=== PATIENT | female | born 2000 | race American Indian/Alaskan Native ===

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

== ENCOUNTER 2021-03-17 21:01 | Emergency (ER) | payer BC, OTHER ==
[2021-03-17 21:31] VITALS: BP 115/59
--- NOTE | 2021-03-17 22:57 | Emergency Department Report ---
ED General Adult HPI - General Chief complaint: Abdominal Pain Stated complaint: abdominal pain Time Seen by Provider: 03/17/21 22:15 Source: patient Mode of arrival: Ambulatory Limitations: No Limitations - History of Present Illness Initial comments: 20-year-old female patient presents to the emergency department with complaints of lower abdominal pain starting 2 days ago. No known sick contacts. No recent travel. No current steroid or antibiotic use. Patient has not taken any medication for the pain. Last menstrual cycle was 1 week ago. No history of prior abdominal surgeries. Denies fever, chills, nausea, vomiting, diarrhea, constipation, vaginal discharge, vaginal bleeding, urinary symptoms. Denies all other complaints at this time. Severity scale (0 -10): 2 - Related Data Previous Rx's Medication Instructions Recorded Last Taken Type Ibuprofen [Motrin 600 MG tab] 600 mg PO Q8H PRN #14 tablet 11/21/20 Unknown Rx Sulfamethoxazole/Trimethoprim 1 each PO BID 3 Days tablet 03/18/21 Unknown Rx [Bactrim DS TAB] Allergies Allergy/AdvReac Type Severity Reaction Status Date / Time No Known Allergies Allergy Unverified 11/21/20 22:52 ED Review of Systems ROS: Stated complaint: BODYACHES/CONSTIPATION/RT SIDE PAIN Other details as noted in HPI Other: GENERAL: Negative for fever, chills, weight change, anorexia, fatigue. ENT: Negative for ear pain, difficulty hearing, sore throat, nasal congestion, epistaxis. CARDIOVASCULAR: Negative for chest pain, palpitations, lower extremity swelling. PULMONARY: Negative for cough, dyspnea, wheezing, orthopnea, cyanosis. GASTROINTESTINAL: Positive for abdominal pain. MUSCULOSKELETAL: Negative for joint pain, joint swelling, myalgias, back pain, neck pain. NEUROLOGICAL: Negative for headache, seizure, syncope, paresthesias, weakness. INTEGUMENTARY: Negative for erythema, rash, diaphoresis, laceration, ecchymosis. HEMATOLOGICAL: Negative for hemoptysis, hematemesis, hematochezia, hematuria. PSYCHIATRIC: Negative for hallucinations, suicidal ideation, homicidal ideation, anxiety, depression. ED Past Medical Hx - Past Medical History Previous Medical History?: No - Surgical History Past Surgical History?: No - Social History Smoking Status: Never Smoker Substance Use Type: None - Medications Home Medications: Home Medications Medication Instructions Recorded Confirmed Last Taken Type Ibuprofen [Motrin 600 MG tab] 600 mg PO Q8H PRN #14 tablet 11/21/20 Unknown Rx Sulfamethoxazole/Trimethoprim 1 each PO BID 3 Days tablet 03/18/21 Unknown Rx [Bactrim DS TAB] ED Physical Exam - General Limitations: No Limitations - Other Other exam information: General: Awake and alert. No acute distress. Head: Atraumatic, normocephalic. Eyes: EOMI. Pupils are equal and round. Normal sclera and conjunctiva. ENT: Oral mucosa is moist. Normal pharyngeal exam. Neck: Supple. No lymphadenopathy. Pulmonary: No respiratory distress. Clear to auscultation bilaterally. Cardiac: Regular rate and rhythm. Pulses are palpable and equal bilaterally. No lower extremity cyanosis or edema. Skin: Warm and dry. No rashes. Abdomen: Soft, non-protuberant. Patient reports diffuse lower abdominal pain without localized tenderness, guarding, rigidity, or rebound. Bowel sounds are normal. No organomegaly or masses noted. Back: Normal alignment. No CVA tenderness. Extremities: Symmetrical. Full range of motion intact. Neurological: Alert and oriented, appropriately interactive, no focal deficits. Psych: Cooperative. Appropriate mood and affect. Speech is evenly metered. Thoughts are logically construed. ED Course Vital Signs 03/17/21 21:29 Temperature 98.7 F Pulse Rate 68 Respiratory 16 Rate Blood Pressure 115/59 [Left] O2 Sat by Pulse 98 Oximetry ED Medical Decision Making - Lab Data Result diagrams: 03/17/21 23:16 03/17/21 23:16 - Medical Decision Making Differential diagnosis including but not limited to: appendicitis, pyelonephritis, ovarian cyst/torsion, pelvic inflammatory disease, urinary tract infection, On reevaluation, patient remains stable. Repeat abdominal exam is benign. Labs are unremarkable. test is negative. Patient is afebrile, hemodynamically stable, tolerating oral intake without difficulty, no vaginal bleeding or discharge. Urinalysis is nitrite positive with trace leukocyte esterase. Patient will be treated for cystitis with short course of Bactrim. No clinical indication for further diagnostic work-up on an emergent basis at this time. Patient will be discharged home with antibiotics and instructed to follow-up with primary care provider within 24 hours for repeat abdominal assessment. Patient expressed understanding and is agreeable to plan of care. Strict return precautions provided. Specifically, signs/symptoms of appendicitis were discussed with the patient, who agrees to return to the emergency department immediately for reevaluation if these occur. Repeat exam is unremarkable and benign. History, exam, diagnostic testing, and current condition do not suggest worrisome pathology to warrant further testing, continued ED treatment, admission, or surgical evaluation at this point. Given the low probability of a significant medical illness, it would be more likely to result in harm than benefit to perform further testing at this stage. Discussed findings, presumptive diagnosis, need for follow-up and specific signs/symptoms that should prompt immediate return to the emergency department. Instructions were explained in detail to the patient in addition to giving written discharge information. Patient expressed understanding and was given the opportunity to ask questions, all of which were satisfactorily answered prior to discharge home. Critical care attestation.: If time is entered above; I have spent that time in minutes in the direct care of this critically ill patient, excluding procedure time. ED Disposition Clinical Impression: Urinary tract infection Qualifiers: Urinary tract infection type: acute cystitis Hematuria presence: without hematuria Qualified Code(s): N30.00 - Acute cystitis without hematuria Disposition: TO HOME OR SELFCARE Is pt being admited?: No Does the pt Need Aspirin: No Condition: Stable Instructions: Urinary Tract Infection, Adult, Abdominal Pain (ED) Additional Instructions: Take Tylenol every 4 hours and Motrin every 8 hours as needed for pain. Take Bactrim with food as directed. Increase your dietary intake of probiotic rich foods while taking this me dication. Follow-up with your primary care provider this week. Call tomorrow to schedule an appointment. Return to the emergency department immediately for new or worsening symptoms. Specifically, return to the emergency department immediately for fever, vomiting, loss of appetite, pain localized specifically to the right lower part of your abdomen, abnormal vaginal bleeding/discharge, or any other concerns. Prescriptions: Sulfamethoxazole/Trimethoprim [Bactrim DS TAB] 1 each PO BID 3 Days tablet Referrals: [facility] [Provider Group] - 3-5 Days Time of Disposition: 00:40
[2021-03-17 23:30] LABS: Bacteria,Urine 1+ /HPF (Negative); Bilirubin,Urine NEG (Negative); Blood,Urine NEG (Negative); Color,Urine Yellow (Yellow); Mucus,Urine FEW /HPF; Protein,Urine <15 mg/dL mg/dL (Negative); Urobilinogen,Urine < 2.0 mg/dL (<2.0)
[2021-03-18] LABS: Basophils # (Auto) 0.1 K/mm3 (0.0-0.1); Basophils % (Auto) 1.3 % (0.0-1.8); Eosinophils # (Auto) 0.3 K/mm3 (0.0-0.4); Eosinophils % (Auto) 4.3 % (0.0-4.3); Hematocrit 41.2 % (30.3-42.9); Hemoglobin 13.8 gm/dl (10.1-14.3); Lymphocytes # (Auto) 2.3 K/mm3 (1.2-5.4); Lymphocytes % (Auto) 30.1 % (13.4-35.0); Mean Corpuscular HGB Conc 34 % (30-34); Mean Corpuscular Volume 88 fl (79-97); Monocytes # (Auto) 0.9 K/mm3 (0.0-0.8); Monocytes % (Auto) 11.2 % (0.0-7.3); Platelet Count 299 K/mm3 (140-440); Red Cell Distribution Width 14.9 % (13.2-15.2)
[2021-03-18 00:25] LABS: Alanine Aminotransferase 8 units/L (7-56); Albumin 3.8 g/dL (3.9-5); BUN/Creatinine Ratio 11; Blood Urea Nitrogen 8 mg/dL (7-17); Calcium 8.9 mg/dL (8.4-10.2); Hemolysis Index 5
== END 2021-03-18 02:00 | disposition home or self-care (01) ==
LOC: ED 21:01
DX: N39.0 Urinary tract infection, site not specified (principal)
CPT/HCPCS: 36415; 80053; 81001; 83690; 83735; 84703; 85025; 99283

== ENCOUNTER 2021-05-07 08:19 | Emergency (ER) | payer BC ==
[2021-05-07 08:22] VITALS: BP 142/71
--- NOTE | 2021-05-07 09:42 | Emergency Department Report ---
- General Chief Complaint: Pain General Stated Complaint: GENERAL ILLNESS Time Seen by Provider: 05/07/21 08:55 Source: patient Mode of arrival: Ambulatory Limitations: No Limitations - History of Present Illness Initial Comments: 20-year-old -[place] female presents to the emergency room complaining of headache, body aches, chills cough and sneezing. She states that she has a rash that comes and goes. 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 Denies any fever. MD Complaint: fever Onset/Timin -: days(s) Worsens With: nothing Context: sick contacts Associated Symptoms: chills, myalgias, headache, rhinorrhea, nasal congestion, cough. denies: chest pain, shortness of breath, abdominal pain, nausea, vomiting Treatments Prior to Arrival: none - Related Data Previous Rx's Medication Instructions Recorded Last Taken Type Ibuprofen [Motrin 600 MG tab] 600 mg PO Q8H PRN #14 tablet 11/21/20 Unknown Rx Sulfamethoxazole/Trimethoprim 1 each PO BID 3 Days tablet 03/18/21 Unknown Rx [Bactrim DS TAB] Allergies Allergy/AdvReac Type Severity Reaction Status Date / Time No Known Allergies Allergy Unverified 11/21/20 22:52 ED Review of Systems ROS: Stated complaint: GENERAL ILLNESS Other details as noted in HPI Comment: All other systems reviewed and negative ED Past Medical Hx - Social History Smoking Status: Never Smoker Substance Use Type: None - Medications Home Medications: Home Medications Medication Instructions Recorded Confirmed Last Taken Type Ibuprofen [Motrin 600 MG tab] 600 mg PO Q8H PRN #14 tablet 11/21/20 Unknown Rx Sulfamethoxazole/Trimethoprim 1 each PO BID 3 Days tablet 03/18/21 Unknown Rx [Bactrim DS TAB] ED Physical Exam - General Limitations: No Limitations General appearance: alert, in no apparent distress - Head Head exam: Present: atraumatic, normocephalic - Eye Eye exam: Present: normal appearance - ENT ENT exam: Present: mucous membranes moist, TM's normal bilaterally - Neck Neck exam: Present: normal inspection, full ROM. Absent: tenderness - Respiratory Respiratory exam: Present: normal lung sounds bilaterally. Absent: respiratory distress, chest wall tenderness, accessory muscle use - Cardiovascular Cardiovascular Exam: Present: regular rate, normal rhythm. Absent: systolic murmur, diastolic murmur, rubs, gallop - GI/Abdominal GI/Abdominal exam: Present: soft, normal bowel sounds - Extremities Exam Extremities exam: Present: normal inspection - Back Exam Back exam: Present: normal inspection - Neurological Exam Neurological exam: Present: alert, oriented X3 - Psychiatric Psychiatric exam: Present: normal affect, normal mood - Skin Skin exam: Present: warm, dry, intact, normal color. Absent: rash ED Course Vital Signs 05/07/21 05/07/21 08:21 08:59 Temperature 99.4 F Pulse Rate 80 Respiratory 16 Rate Blood Pressure 142/71 [Right] O2 Sat by Pulse 98 Oximetry ED Medical Decision Making - Medical Decision Making 20-year-old -[place] female presents to the emergency room complaining of headache, body aches, chills cough and sneezing. She states that she has a rash that comes and goes. 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 Denies any fever. Recommend taking [id number] Zyrtec's or Claritin. Get Covid tested. Tylenol or ibuprofen for body aches. Critical care attestation.: If time is entered above; I have spent that time in minutes in the direct care of this critically ill patient, excluding procedure time. ED Disposition Clinical Impression: Suspected 2019 novel coronavirus infection Disposition: HOME / SELF CARE / HOMELESS Is pt being admited?: No Does the pt Need Aspirin: No Condition: Stable Instructions: Prevent the Spread of COVID-19 if You Are Sick - CDC, COVID-19 Frequently Asked Questions, COVID-19: How to Protect Yourself and Others - CDC Additional Instructions: Your symptoms appear most consistent with a nonspecific viral syndrome. However, given this current pandemic, COVID-19 is in the differential of possibilities. I do recommend outpatient Covid 19 testing. In the meantime, isolate/quarantine yourself and stay away from anyone who is elderly, immunocompromised or chronically ill. You can use ibuprofen every 6-8 hours and Tylenol every 4-8 hours, using the dosing on the back of the bottle, as needed for any fever or body aches. Return to the emergency department with any worsening of your symptoms, development of chest pain or shortness of breath, or with any acute distress. You can try [id number] Claritin or Zyrtec's. Referrals: CARBUCCIA,GWYN, MD [Staff Physician] - 3-5 Days Forms: Work/School Release Form(ED)
== END 2021-05-07 10:03 | disposition home or self-care (01) ==
LOC: ED 08:19
DX: R51.9 Headache, unspecified (principal); M79.18 Myalgia, other site; R05 Cough; R06.7 Sneezing
CPT/HCPCS: 99282